=== PATIENT | female | born 1965 | race African-American/Black ===

== ENCOUNTER 2018-01-29 19:34 | Emergency (ER) | payer OTHER ==
[~2018-01-29] VITALS: Ht 172.7 cm; Wt 97.0 kg
[2018-01-29 20:28] LABS: CHLORIDE 107 mEq/L (98-107)
[2018-01-29 20:29] LABS: BASOPHILS % 0.8 % (0.0-2.0); EOSINOPHILS % 2.1 % (0.0-5.0); HEMATOCRIT. 37.8 % (36.0-48.0); HEMOGLOBIN. 12.9 g/dL (12.0-16.0); LYMPHOCYTES % 32.8 % (20.0-50.0); MEAN CORPUSCULAR HEMOGLOBIN 32.4 pg (28.0-32.0); MEAN CORPUSCULAR VOLUME 95.1 fL (81.0-99.0); MEAN PLATELET VOLUME 8.8 fl (7.4-10.4); MONOCYTES % 7.9 % (2.0-8.0); NEUTROPHILS % 56.4 % (40.0-76.0); PLATELET 250 x1000/uL (130-400); RED BLOOD CELL COUNT 3.98 mill/uL (4.2-5.4); RED CELL DISTRIBUTION WIDTH 12.9 % (11.6-14.6)
[2018-01-29 20:30] LABS: PARTIAL THROMBOPLASTIN TIME 29.1 sec (23.4-31.0); PROTHROMBIN TIME 10.9 sec (9.4-11.6)
[2018-01-29] MEDS ORDERED: POTASSIUM BICARB/CIT ACID 25 MEQ TABLET.EFF PO NR (22:30)
[2018-01-29] MEDS ORDERED: ASPIRIN 81MG TABLET PO ONE (22:30)
[2018-01-29] MEDS ORDERED: KETOROLAC 15MG/ML VIAL IV ONE (22:45)
[2018-01-30 01:05] VITALS: BP 102/54
== END 2018-01-30 01:13 | disposition home or self-care (01) ==
LOC: ER 22:51
DX: R07.89 Other chest pain (principal); E87.6 Hypokalemia; R06.02 Shortness of breath; R42 Dizziness and giddiness; R53.1 Weakness; R11.0 Nausea; I50.9 Heart failure, unspecified; Z79.82 Long term (current) use of aspirin; Z88.6 Allergy status to analgesic agent
CPT/HCPCS: 36415; 71045; 80053; 83690; 83880; 84484; 85025; 85379; 85610; 85730; 93005; 96374; 99285; J1885; Z7610

== ENCOUNTER 2018-02-28 19:32 | Emergency (ER) | payer OTHER ==
[~2018-02-28] VITALS: Ht 172.7 cm; Wt 99.0 kg
[2018-02-28] MEDS ORDERED: IBUPROFEN 600MG TABLET PO STA (21:27)
[2018-02-28] MEDS ORDERED: IBUPROFEN 600MG TABLET PO ONE (21:45)
[2018-02-28] MEDS ORDERED: OXYCODONE HCL/ACETAMINOPHEN 5/325MG TABLET PO ONE (21:45)
[2018-02-28 22:30] VITALS: BP 118/60
== END 2018-03-01 02:25 | disposition home or self-care (01) ==
LOC: ER 03-01 02:19
DX: G89.18 Other acute postprocedural pain (principal); N64.4 Mastodynia; I50.9 Heart failure, unspecified; Z98.84 Bariatric surgery status; Z98.890 Other specified postprocedural states
CPT/HCPCS: 71045; 93005; 99284; Z7610

== ENCOUNTER 2019-08-01 11:15 | Inpatient (IN) | payer OTHER ==
[~2019-08-01] VITALS: Ht 172.7 cm; Wt 115.7 kg
[2019-08-01] MEDS ORDERED: NITROGLYCERIN 0.4MG TABLET SL SL PRN (12:15)
[2019-08-01] MEDS ORDERED: ASPIRIN 81MG TABLET PO ONE (12:15)
[2019-08-01 12:40] LABS: BASOPHILS % 0.7 % (0.0-2.0); CHLORIDE 108 mEq/L (98-107); EOSINOPHILS % 2.8 % (0.0-5.0); HEMATOCRIT. 35.9 % (36.0-48.0); HEMOGLOBIN. 12.2 g/dL (12.0-16.0); LYMPHOCYTES % 24.7 % (20.0-50.0); MEAN CORPUSCULAR HEMOGLOBIN 32.5 pg (28.0-32.0); MEAN CORPUSCULAR VOLUME 95.9 fL (81.0-99.0); MEAN PLATELET VOLUME 8.2 fl (7.4-10.4); NEUTROPHILS % 63.8 % (40.0-76.0); PLATELET 224 x1000/uL (130-400); PROTHROMBIN TIME 10.4 sec (9.6-11.0); RED BLOOD CELL COUNT 3.75 mill/uL (4.2-5.4)
[2019-08-01 14:15] LABS: HCG SCREEN NEGATIVE
[2019-08-01] MEDS ORDERED: TRAMADOL 50MG TABLET PO ONE (15:15)
[2019-08-01] MEDS ORDERED: KETOROLAC 30MG/ML VIAL IV ONE (17:00)
[2019-08-01] MEDS ORDERED: HYDROCODONE/ACETAMINOPHEN 5/325MG TABLET PO ONE (17:00)
[2019-08-01 19:46] VITALS: BP 113/39
[2019-08-01] MEDS ORDERED: GABA-531 PO (21:04)
[2019-08-01] MEDS ORDERED: TRAM50TA3 PO (21:04)
[2019-08-01] MEDS ORDERED: IBUP-2030 PO (21:04)
[2019-08-01] MEDS ORDERED: TAMO20TA4 PO (21:04)
[2019-08-01 21:05] VITALS: BP 125/34
[2019-08-01] MEDS ORDERED: ACETAMINOPHEN 650MG/20.3ML UDC PO PRN (21:30)
[2019-08-01] MEDS: NITROGLYCERIN OINT 1GM/INCH UDPKT TD SCH (22:00)
[2019-08-02] VITALS: BP 98/41
[2019-08-02 01:09] LABS: CREATINE KINASE 80 IU/L (26-192)
[2019-08-02 01:10] LABS: CREATINE KINASE MB FRACTION < 1.0 ng/mL (0.5-3.6)
[2019-08-02 04:00] VITALS: BP 114/39
[2019-08-02] MEDS: NITROGLYCERIN OINT 1GM/INCH UDPKT TD SCH (06:00)
[2019-08-02 07:36] LABS: BASOPHILS % 0.4 % (0.0-2.0); CHLORIDE 108 mEq/L (98-107); HEMATOCRIT. 32.7 % (36.0-48.0); HEMOGLOBIN. 11.2 g/dL (12.0-16.0); LYMPHOCYTES % 24.7 % (20.0-50.0); MEAN CORPUSCULAR HEMOGLOBIN 32.7 pg (28.0-32.0); MEAN CORPUSCULAR VOLUME 95.4 fL (81.0-99.0); MEAN PLATELET VOLUME 8.3 fl (7.4-10.4); MONOCYTES % 10.2 % (2.0-8.0); NEUTROPHILS % 59.7 % (40.0-76.0); PLATELET 204 x1000/uL (130-400); RED BLOOD CELL COUNT 3.43 mill/uL (4.2-5.4); RED CELL DISTRIBUTION WIDTH 12.8 % (11.6-14.6)
[2019-08-02 07:46] LABS: CREATINE KINASE 65 IU/L (26-192); LDL CHOLESTEROL 158 mg/dL (5-100)
[2019-08-02 07:47] LABS: HDL CHOLESTEROL 41 mg/dL (40-59)
[2019-08-02 07:50] LABS: CREATINE KINASE MB FRACTION < 1.0 ng/mL (0.5-3.6)
[2019-08-02 08:00] VITALS: BP 102/58
[2019-08-02] MEDS ORDERED: ASPIRIN 325MG EC TABLET PO SCH (09:00)
[2019-08-02] MEDS ORDERED: ENOXAPARIN 40MG/0.4ML SYR SUBCUT SCH (09:00)
[2019-08-02] MEDS: ENOXAPARIN 30MG/0.3ML SYR SUBCUT SCH ×2 (09:32→20:38)
[2019-08-02 12:00] VITALS: BP 101/56
[2019-08-02] MEDS ORDERED: TAMOXIFEN CITRATE 20 MG PO SCH (12:00)
[2019-08-02] MEDS ORDERED: IBUPROFEN 400MG TABLET PO PRN (12:00)
[2019-08-02] MEDS ORDERED: HYDRALAZINE 20MG/ML VIAL IV PRN (12:15)
[2019-08-02] MEDS: HYDROCODONE/ACETAMINOPHEN 5/325MG TABLET PO PRN ×2 (12:45→20:41)
[2019-08-02] MEDS ORDERED: POTASSIUM CHLORIDE 20MEQ TABLET SR PO NR (12:45)
[2019-08-02] MEDS ORDERED: TAMOXIFEN 10MG TABLET PO SCH (13:30)
[2019-08-02] MEDS ORDERED: IBUPROFEN 800MG TABLET PO PRN (14:00)
[2019-08-02] MEDS ORDERED: CYCLOBENZAPRINE 10MG TABLET PO SCH (14:00)
[2019-08-02] MEDS ORDERED: LORAZEPAM 2MG/ML CPJ IV PRN (15:30)
[2019-08-02] MEDS ORDERED: DIPHENHYDRAMINE 50MG/ML VIAL IV PRN (15:30)
[2019-08-02] MEDS: CYCLOBENZAPRINE 10MG TABLET PO PRN (15:46)
[2019-08-02 16:00] VITALS: BP 97/43
[2019-08-02 16:34] LABS: CREATINE KINASE 67 IU/L (26-192)
[2019-08-02 16:38] LABS: CREATINE KINASE MB FRACTION < 1.0 ng/mL (0.5-3.6)
[2019-08-02] MEDS ORDERED: FUROSEMIDE 20MG/2ML VIAL IVP NR (17:00)
[2019-08-02] MEDS: ATORVASTATIN CALCIUM 20MG TABLET PO SCH (20:38)
[2019-08-02 20:57] VITALS: BP 109/70
[2019-08-03] VITALS (7 sets, daily range): BP systolic 80–107; BP diastolic 32–60
[2019-08-03 07:39] LABS: HEMATOCRIT 32.8 % (36.0-48.0); HEMOGLOBIN 11.2 g/dL (12.0-16.0); MEAN CORPUSCULAR HEMOGLOBIN 32.7 pg (28.0-32.0); MEAN CORPUSCULAR VOLUME 95.7 fL (81.0-99.0); PLATELET 205 x1000/uL (130-400); RED BLOOD CELL COUNT 3.42 mill/uL (4.2-5.4); RED CELL DISTRIBUTION WIDTH 13.2 % (11.6-14.6)
[2019-08-03 08:12] LABS: CHLORIDE 107 mEq/L (98-107)
[2019-08-03] MEDS: ASPIRIN 81MG TABLET PO SCH (09:48)
[2019-08-03] MEDS: ENOXAPARIN 30MG/0.3ML SYR SUBCUT SCH ×2 (09:48→20:39)
[2019-08-03] MEDS: HYDROCODONE/ACETAMINOPHEN 5/325MG TABLET PO PRN ×2 (10:09→21:46)
[2019-08-03] MEDS ORDERED: POTASSIUM CHLORIDE 20MEQ TABLET SR PO NR (11:00)
[2019-08-03] MEDS: TAMOXIFEN 10MG TABLET PO SCH (14:29)
[2019-08-03] MEDS ORDERED: ATOR20TA MT (15:43)
[2019-08-03] MEDS ORDERED: ASPI-1393 MT (15:43)
[2019-08-03] MEDS ORDERED: SODIUM CHLORIDE 0.9% 500 ML IV SCH (19:45)
[2019-08-03 20:21] LABS: EOSINOPHILS % 4.9 % (0.0-5.0); HEMATOCRIT. 35.2 % (36.0-48.0); HEMOGLOBIN. 11.9 g/dL (12.0-16.0); LYMPHOCYTES % 31.2 % (20.0-50.0); MEAN CORPUSCULAR VOLUME 94.9 fL (81.0-99.0); MEAN PLATELET VOLUME 8.4 fl (7.4-10.4); MONOCYTES % 11.7 % (2.0-8.0); NEUTROPHILS % 51.2 % (40.0-76.0); PLATELET 233 x1000/uL (130-400); RED BLOOD CELL COUNT 3.71 mill/uL (4.2-5.4)
[2019-08-03 20:26] LABS: CHLORIDE 109 mEq/L (98-107)
[2019-08-03 20:35] LABS: CREATINE KINASE 56 IU/L (26-192)
[2019-08-03] MEDS: ATORVASTATIN CALCIUM 20MG TABLET PO SCH (20:39)
[2019-08-04] VITALS: BP 108/48
[2019-08-04] MEDS ORDERED: SODIUM CHLORIDE 0.9% 500 ML IV SCH
[2019-08-04 04:00] VITALS: BP 123/47
[2019-08-04 08:00] VITALS: BP 96/45
[2019-08-04] MEDS: ASPIRIN 81MG TABLET PO SCH (09:09)
[2019-08-04] MEDS: TAMOXIFEN 10MG TABLET PO SCH (09:09)
[2019-08-04] MEDS: ENOXAPARIN 30MG/0.3ML SYR SUBCUT SCH (09:10)
[2019-08-04] MEDS: CYCLOBENZAPRINE 10MG TABLET PO PRN (09:16)
[2019-08-04 09:42] LABS: CHLORIDE 109 mEq/L (98-107)
[2019-08-04 09:47] LABS: BASOPHILS % 0.7 % (0.0-2.0); HEMOGLOBIN. 11.5 g/dL (12.0-16.0); LYMPHOCYTES % 33.2 % (20.0-50.0); MEAN CORPUSCULAR HEMOGLOBIN 32.4 pg (28.0-32.0); MEAN CORPUSCULAR VOLUME 96.1 fL (81.0-99.0); MEAN PLATELET VOLUME 8.3 fl (7.4-10.4); MONOCYTES % 10.3 % (2.0-8.0); NEUTROPHILS % 50.8 % (40.0-76.0); PLATELET 214 x1000/uL (130-400); RED BLOOD CELL COUNT 3.54 mill/uL (4.2-5.4); RED CELL DISTRIBUTION WIDTH 12.9 % (11.6-14.6)
[2019-08-04 09:53] LABS: CREATINE KINASE 52 IU/L (26-192)
[2019-08-04] MEDS ORDERED: POTASSIUM CHLORIDE 20MEQ TABLET SR PO NR (11:15)
[2019-08-04] MEDS ORDERED: SODIUM CHLORIDE 0.45% 1,000 ML IV SCH (11:15)
[2019-08-04] MEDS ORDERED: MIDODRINE HCL 5MG TABLET PO SCH (11:15)
[2019-08-04] MEDS ORDERED: REGADENOSON 0.4 MG/5 ML IV ONE (13:24)
[2019-08-04 15:21] VITALS: BP_SYST 133; BP_SYST 136; BP_SYST 138; BP_DIAS 70; BP_DIAS 75; BP_DIAS 79
[2019-08-04 16:00] VITALS: BP 133/70
== END 2019-08-04 17:05 | disposition home or self-care (01) | DRG 194 ==
LOC: ER 11:15 → 5WST 14:28 → SUPCPDRO 14:31 → EDBEDREQ 15:38 → ENRESERV 19:45
PROVIDERS: ADMIT Internal Medicine; ATTEND Internal Medicine
DX: I11.0 Hypertensive heart disease with heart failure (principal); E86.0 Dehydration; E87.8 Other disorders of electrolyte and fluid balance, not elsewhere classified; I50.33 Acute on chronic diastolic (congestive) heart failure; D64.9 Anemia, unspecified; E66.9 Obesity, unspecified; E78.5 Hyperlipidemia, unspecified; E87.6 Hypokalemia; D72.819 Decreased white blood cell count, unspecified; I95.1 Orthostatic hypotension; M54.31 Sciatica, right side; M54.32 Sciatica, left side; Z79.899 Other long term (current) drug therapy; Z85.3 Personal history of malignant neoplasm of breast; Z92.3 Personal history of irradiation; Z98.84 Bariatric surgery status; Z68.38 Body mass index [BMI] 38.0-38.9, adult; Z71.3 Dietary counseling and surveillance
CPT/HCPCS: 36415; 71045; 72148; 78452; 80048; 80061; 82550; 82553; 83735; 83880; 84484; 84703; 85027; 93005; 93017; 93306; 93970; 97110; 97162; 99285; A9500; J1650; J1885; J1940; J2785; J7040

== ENCOUNTER 2021-09-27 16:57 | Emergency (ER) | payer OTHER ==
[~2021-09-27] VITALS: Ht 172.7 cm; Wt 102.0 kg
[~2021-09-27 16:57] MED LIST: ASPI-1497 MT; ESCI20TA PO; GABA-532 PO; IBUP-2030 PO; LIP40 MT; QUET25TA PO; TAMO20TA4 PO; TRAM50TA3 PO
[2021-09-27] MEDS ORDERED: ACETAMINOPHEN 325MG TABLET PO ONE (20:30)
[2021-09-27 20:32] LABS: CLARITY URINE CLEAR (CLEAR); COLOR URINE YELLOW (YELLOW); KETONES URINE NEGATIVE (NEGATIVE); LEUKOCYTE ESTERASE URINE NEGATIVE (NEGATIVE); NITRITE URINE NEGATIVE (NEGATIVE); OCCULT BLOOD URINE NEGATIVE (NEGATIVE); PH URINE 5.5 (4.5-8.0); PROTEIN URINE NEGATIVE (NEGATIVE); SPECIFIC GRAVITY URINE 1.013 (1.005-1.030)
[2021-09-27 21:00] VITALS: BP 152/75
== END 2021-09-27 22:00 | disposition home or self-care (01) ==
LOC: ER 16:57
DX: R39.15 Urgency of urination (principal); I50.9 Heart failure, unspecified; Z88.6 Allergy status to analgesic agent; Z79.82 Long term (current) use of aspirin; Z79.899 Other long term (current) drug therapy; Z98.890 Other specified postprocedural states
CPT/HCPCS: 81003; 82962; 99283

== ENCOUNTER 2022-01-02 02:40 | Emergency (ER) | payer OTHER ==
[~2022-01-02] VITALS: Ht 172.7 cm; Wt 98.0 kg
[2022-01-02 06:23] LABS: BASOPHILS % 0.8 % (0.0-2.0); EOSINOPHILS % 2.9 % (0.0-5.0); HEMATOCRIT. 37.6 % (36.0-48.0); HEMOGLOBIN. 12.9 g/dL (12.0-16.0); MEAN CORPUSCULAR HEMOGLOBIN 32.2 pg (28.0-32.0); MEAN CORPUSCULAR VOLUME 93.8 fL (81.0-99.0); MEAN PLATELET VOLUME 8.3 fl (7.4-10.4); MONOCYTES % 8.7 % (2.0-8.0); NEUTROPHILS % 55.6 % (40.0-76.0); PLATELET 275 x1000/uL (130-400); RED BLOOD CELL COUNT 4.01 mill/uL (4.2-5.4); RED CELL DISTRIBUTION WIDTH 14.1 % (11.6-14.6)
[2022-01-02 06:30] LABS: CHLORIDE 107 mEq/L (98-107)
[2022-01-02 06:41] LABS: CLARITY URINE CLEAR (CLEAR); COLOR URINE DARK YELLOW (YELLOW); KETONES URINE TRACE (NEGATIVE); LEUKOCYTE ESTERASE URINE 1+ (NEGATIVE); NITRITE URINE NEGATIVE (NEGATIVE); OCCULT BLOOD URINE NEGATIVE (NEGATIVE); PH URINE 5.5 (4.5-8.0); PROTEIN URINE NEGATIVE (NEGATIVE); SPECIFIC GRAVITY URINE 1.029 (1.005-1.030)
[2022-01-02] MEDS ORDERED: TOPUD PO (07:18)
[2022-01-02] MEDS ORDERED: NITR100C PO (07:18)
[2022-01-02] MEDS ORDERED: KETOROLAC 30MG/ML VIAL IV ONE (07:30)
[2022-01-02 08:14] VITALS: BP 133/71
== END 2022-01-02 08:38 | disposition home or self-care (01) ==
LOC: ER 02:40
DX: N39.0 Urinary tract infection, site not specified (principal); I50.9 Heart failure, unspecified; M54.30 Sciatica, unspecified side; Z98.84 Bariatric surgery status; Z98.890 Other specified postprocedural states; Z85.9 Personal history of malignant neoplasm, unspecified; Z79.82 Long term (current) use of aspirin; Z88.5 Allergy status to narcotic agent
CPT/HCPCS: 36415; 74176; 80053; 81003; 83690; 85025; 93005; 96374; 99285; J1885

== ENCOUNTER 2023-07-19 20:15 | Emergency (ER) | payer OTHER ==
[~2023-07-19] VITALS: Ht 172.7 cm; Wt 100.0 kg
[~2023-07-19 20:15] MED LIST changes: +NITR100C PO; +TOPUD PO
[2023-07-19 20:21] VITALS: BP 140/76; PULSE 79; RESP 16; TEMP 98.6; O2SAT 97
[2023-07-19] MEDS ORDERED: ONDANSETRON 4MG ODT PO ONE (20:45)
[2023-07-19 20:49] LABS: CLARITY URINE CLEAR (CLEAR); COLOR URINE DARK YELLOW (YELLOW); GLUCOSE URINE NEGATIVE (NEGATIVE); KETONES URINE NEGATIVE (NEGATIVE); LEUKOCYTE ESTERASE URINE NEGATIVE (NEGATIVE); NITRITE URINE NEGATIVE (NEGATIVE); OCCULT BLOOD URINE TRACE (NEGATIVE); PROTEIN URINE NEGATIVE (NEGATIVE); SPECIFIC GRAVITY URINE 1.024 (1.005-1.030)
[2023-07-19 21:03] LABS: HEMOGLOBIN. 13.2 g/dL (12.0-16.0); MEAN CORPUSCULAR HEMOGLOBIN 29.8 pg (28.0-32.0); MEAN CORPUSCULAR HGB CONC 32.3 g/dL (31.0-37.0); MEAN CORPUSCULAR VOLUME 92.5 fL (81.0-99.0); MEAN PLATELET VOLUME 9.6 fl (7.4-10.4); PLATELET 193 x1000/uL (130-400); RED BLOOD CELL COUNT 4.43 mill/uL (4.2-5.4); RED CELL DISTRIBUTION WIDTH 13.7 % (11.6-14.6); WHITE BLOOD COUNT 2.9 x1000/uL (4.5-11.0)
[2023-07-19 21:06] LABS: DIFFERENTIAL COMMENT 1
[2023-07-19 21:08] LABS: CHLORIDE 108 mEq/L (98-107); INDEX HEMOLYSI 1 (1-3); INDEX ICTERIC 1 (1-4); INDEX LIPEMIC 1 (1-3); SODIUM 139 mEq/L (136-145)
[2023-07-19 21:09] LABS: PROTHROMBIN TIME 11.1 sec (9.6-11.0)
[2023-07-19 21:21] LABS: ALANINE AMINOTRANSFERASE 62 IU/L (13-61); ALBUMIN 3.7 g/dL (3.4-5.0); ASPARTATE AMINOTRANSFERASE 85 IU/L (15-37); BILIRUBIN TOTAL 0.7 mg/dL (0.1-1.0); CALCIUM 9.2 mg/dL (8.5-10.1); CARBON DIOXIDE 26 mEq/L (21-32); CREATININE 0.7 mg/dL (0.6-1.3); GLUCOSE 89 mg/dL (70-105); NT PRO B-TYPE NATRIURETIC PEP 52 pg/mL (5-125); PROTEIN TOTAL 7.9 g/dL (6.0-8.3); TROPONIN I HIGH SENSITIVITY 8 ng/L (<54); UREA NITROGEN BLOOD 20 mg/dL (7-21)
[2023-07-19 21:26] LABS: BACTERIA URINE TRACE; RBC URINE 0-2 /hpf (0-2); SQUAMOUS EPITHELIAL CELL URINE FEW /lpf (RARE/1+); WBC URINE 0-2 /hpf (0-2)
[2023-07-19 21:43] LABS: PLATELET ESTIMATE NORMAL
== END 2023-07-20 01:23 | disposition left against medical advice (07) ==
LOC: ER 20:15
DX: R07.89 Other chest pain (principal); M54.9 Dorsalgia, unspecified; G89.29 Other chronic pain; I50.9 Heart failure, unspecified; Z85.9 Personal history of malignant neoplasm, unspecified; Z79.899 Other long term (current) drug therapy
CPT/HCPCS: 36415; 71045; 80053; 81003; 81025; 83880; 84484; 85025; 93005; 99284

== ENCOUNTER 2023-09-03 23:34 | Emergency (ER) | payer OTHER ==
[~2023-09-03] VITALS: Ht 172.7 cm; Wt 104.0 kg
[2023-09-03 23:49] VITALS: BP 136/82; PULSE 69; RESP 16; TEMP 98.3; O2SAT 96
[2023-09-04] MEDS ORDERED: KETOROLAC 30MG/ML VIAL IV STA (00:13)
[2023-09-04] MEDS ORDERED: ONDANSETRON HCL 4MG/2ML INJ IV STA (00:13)
[2023-09-04] MEDS ORDERED: FAMOTIDINE 20MG/2ML VIAL IV ONE (00:15)
[2023-09-04] MEDS ORDERED: SODIUM CHLORIDE 0.9% 1,000 ML IV ONE (00:15)
[2023-09-04 00:31] LABS: HEMATOCRIT. 45.5 % (36.0-48.0); MEAN CORPUSCULAR HGB CONC 32.9 g/dL (31.0-37.0); MEAN CORPUSCULAR VOLUME 91.3 fL (81.0-99.0); MEAN PLATELET VOLUME 10.1 fl (7.4-10.4); PLATELET 140 x1000/uL (130-400); RED BLOOD CELL COUNT 4.98 mill/uL (4.2-5.4); RED CELL DISTRIBUTION WIDTH 15.5 % (11.6-14.6); WHITE BLOOD COUNT 3.6 x1000/uL (4.5-11.0)
[2023-09-04 00:34] LABS: DIFFERENTIAL COMMENT 1
[2023-09-04 01:22] LABS: ALANINE AMINOTRANSFERASE 148 IU/L (10-49); ALBUMIN 3.4 g/dL (3.2-4.8); ASPARTATE AMINOTRANSFERASE 562 IU/L (<34); BILIRUBIN TOTAL 4.5 mg/dL (0.1-1.0); CALCIUM 9.4 mg/dL (8.7-10.4); CARBON DIOXIDE 25 mEq/L (21-32); CHLORIDE 104 mEq/L (98-107); CREATININE 0.9 mg/dL (0.6-1.0); GLUCOSE 92 mg/dL (70-105); PROTEIN TOTAL 7.2 g/dL (6.0-8.3); SODIUM 141 mEq/L (136-145); TROPONIN I HIGH SENSITIVITY 5 ng/L (3.0-34); UREA NITROGEN BLOOD 11 mg/dL (9-23)
[2023-09-04 03:55] LABS: PLATELET ESTIMATE NORMAL
[2023-09-04] MEDS ORDERED: NAPR-681 MT (05:35)
[2023-09-04] MEDS ORDERED: T3 PO (05:35)
[2023-09-04] MEDS ORDERED: ONDA4TAB50 MT (05:35)
[2023-09-04] MEDS ORDERED: FAMOTIDINE 20MG/2ML VIAL IV NR (06:15)
[2023-09-04] MEDS ORDERED: KETOROLAC 30MG/ML VIAL IV NR (06:15)
[2023-09-04] MEDS ORDERED: ONDANSETRON HCL 4MG/2ML INJ IV NR (06:15)
== END 2023-09-04 07:38 | disposition home or self-care (01) ==
LOC: ER 23:34
DX: R10.11 Right upper quadrant pain (principal); I50.9 Heart failure, unspecified; Z85.9 Personal history of malignant neoplasm, unspecified; Z79.899 Other long term (current) drug therapy
CPT/HCPCS: 99285; 36415; 93005; 74176; 96374; 76705; 96375; 80053; 83690; 85025; 84484; J3490; J1885; J2405; J7030